=== PATIENT | female | born 1980 | race Caucasian/White ===

== ENCOUNTER 2020-06-11 14:02 | Emergency (ER) | payer BC, SELFPAY ==
[2020-06-11 14:16] VITALS: BP 101/55; PULSE 70; RESP 20; TEMP 37.2; O2SAT 98
--- NOTE | 2020-06-11 14:25 | ED.URI ---
HPI - URI/Sore Throat General Chief Complaint: Upper Respiratory Infection Stated Complaint: cough/sob/wheezing/ellis Time Seen by Provider: 06/11/20 14:25 Source: patient and RN notes reviewed Mode of arrival: ambulatory Limitations: no limitations History of Present Illness MD elicited complaint: cough Related Data Home Medications Medication Instructions Recorded Confirmed No Home Medications 06/11/20 06/11/20 Allergies Allergy/AdvReac Type Severity Reaction Status Date / Time No Known Allergies Allergy Verified 07/21/19 12:38 Review of Systems Review of Systems: Narrative: CONSTITUTIONAL: Denies malaise, chills, sweats, or fever. EYES: Denies visual changes, redness, or discharge. ENT: Reports rhinorrhea, congestion, sinus pain, otalgia and sore throat. CARDIOVASCULAR: Denies chest pain, palpitations, or edema. RESPIRATORY: Reports cough. Denies dyspnea. GASTROINTESTINAL: Denies abdominal pain, nausea, vomiting, diarrhea SKIN: Denies rash or itching. MUSCULOSKELETAL: Denies myalgia. NEUROLOGIC: Denies headache. All systems reviewed & are unremarkable except as noted in HPI and below PMFSH Family History Family History Grandparent Hypertension Family history of elevated blood lipids Cerebrovascular accident Carcinoma of colon Family history of malignant neoplasm of cervix Family history of coronary artery disease Diabetes mellitus Mother Family history of malignant neoplasm of cervix Social History Social History Smoking status: Light tobacco smoker Second hand tobacco smoke exposure: No Smoking end date: 07/26/08 Alcohol intake: current Substance use type: marijuana Gender identity (if verbalized by the patient): Female Comments At time of signature, agree with nursing past medical, surgical, social and family history. There is no relevant family history pertinent to the presenting complaint Exam Narrative: Exam Narrative: GENERAL: Well-appearing, well-nourished, and in no acute distress. HEAD: Normocephalic EYES: PERRLA, conjunctivae clear ENT: Nares clear, turbinates edematous and erythematous, clear discharge. Mucous membranes moist. TM pearly hannah with dull light reflex bilaterally; no tragal tenderness. Oropharynx erythematous without lesions. Tonsils enlarged and without exudate, no drooling, no hoarseness, no trismus, uvula midline. NECK: Supple. No lymphadenopathy CHEST: Clear to auscultation, breath sounds equal. No wheezing, rhonchi, rales, or stridor. No respiratory distress, speaks in full sentences. HEART: Regular rate and rhythm. No murmur heard. SKIN: Warm, dry, no rash. NEURO: Alert and oriented x3. PSYCH: Normal mood and affect Course Course Emergency Course: Patient is aware of diagnosis, understands and agrees to treatment plan. Anticipatory guidance given. Patient agrees to follow-up as directed and is aware of reasons to seek care at the emergency department. Portions of this record may have been created with voice recognition software Vital Signs Vital signs: Vital Signs Temperature 99.0 F 06/11/20 14:16 Pulse Rate 70 06/11/20 14:16 Respiratory Rate 20 06/11/20 14:16 Blood Pressure 101/55 L 06/11/20 14:16 Pulse Oximetry 98 06/11/20 14:16 Temperature 99.0 F 06/11/20 14:16 Pulse Rate 70 06/11/20 14:16 Respiratory Rate 20 06/11/20 14:16 Blood Pressure 101/55 L 06/11/20 14:16 Pulse Oximetry 98 06/11/20 14:16 Reviewed. MDM - URI/Sore Throat MDM Narrative Medical decision making narrative: Differential diagnosis considered: Lindquist virus, strep pharyngitis, allergic rhinitis, upper respiratory tract infection, sinusitis, rhinosinusitis, nasopharyngitis. viral pharyngitis, otitis media, otitis externa, pneumonia, bronchitis, viral cough syndrome, viral syndrome, and influenza. Exam findings show no acute c
== END 2020-06-11 14:43 | disposition home or self-care (01) ==
PROVIDERS: Emergency Provider Nurse Practitioner
DX: Z20.828 Contact with and (suspected) exposure to other viral communicable diseases (principal); R05 Cough; R06.02 Shortness of breath; R51.9 Headache, unspecified; R06.2 Wheezing; R09.89 Other specified symptoms and signs involving the circulatory and respiratory systems; R43.9 Unspecified disturbances of smell and taste
CPT/HCPCS: 99211; G0463

== ENCOUNTER 2020-06-13 06:53 | Outpatient (NON) | payer BC, SELFPAY ==
[2020-06-13 21:01] LABS: SARS-CoV-2 RNA PCR Negative
== END 2020-06-13 06:54 ==
LOC: ANHCOVIDDT 07:11
PROVIDERS: Visit Provider Nurse Practitioner
DX: R68.89 Other general symptoms and signs (principal); Z20.828 Contact with and (suspected) exposure to other viral communicable diseases
CPT/HCPCS: 87635; C9803; U0003

== ENCOUNTER 2022-12-11 14:56 | Outpatient (CLI) | payer OTHER, SELFPAY ==
--- NOTE | ~2022-12-11 | MM_ITS ---
EXAMINATION: MM screening [facility] BI w dane HISTORY: Screening mammogram TECHNIQUE: Craniocaudal and mediolateral oblique 3-D tomosynthesis images were obtained and synthetic 2-D images were generated. CAD analysis was submitted and interpreted. COMPARISON: 08/20/2016, 05/16/2015 BREAST PARENCHYMAL COMPOSITION: The breasts are extremely dense, which lowers the sensitivity of mamm ography. FINDINGS: No suspicious mass, calcification, or architectural distortion are identified in either clement ast to suggest malignancy. There has been no suspicious interval change. IMPRESSION: 1. No mammographic evidence of malignancy. 2. Recommend routine screening mammography in one year. BI-RADS Category 1: Negative Reviewed, dictated and finalized at location A.
== END 2022-12-11 14:57 | disposition home or self-care (01) ==
LOC: ANHIMG 15:05
PROVIDERS: PCP Family Medicine; Visit Provider Registered Nurse
DX: Z12.31 Encounter for screening mammogram for malignant neoplasm of breast (principal)
CPT/HCPCS: 77063; 77067

== ENCOUNTER 2024-09-08 14:08 | Outpatient (CLI) | payer OTHER, SELFPAY ==
--- NOTE | ~2024-09-08 | MM_ITS ---
EXAMINATION: MM screening [facility] BI w dane HISTORY: Screening TECHNIQUE: Craniocaudal and mediolateral oblique 3-D tomosynthesis images were obtained and synthetic 2-D images were generated. CAD analysis was submitted and interpreted. COMPARISON: Comparison to multiple prior studies sequentially, with oldest reviewed study dated 04/26. BREAST PARENCHYMAL COMPOSITION: Dense: The breasts are extremely dense, which lowers the sensitivity of mammography. FINDINGS: There are new masses in the lower outer quadrant of the left breast, anterior third. These are obscured by dense fibroglandular tissue. The right breast is stable without evidence for malignan cy. IMPRESSION: 1. New left breast masses. 2. Additional mammographic views and possible breast ultrasound are recommended. BI-RADS Category 0: Incomplete: Needs additional imaging evaluation. Reviewed, dictated and finalized at location B. [facility] IMPRESSION: 1. New left breast masses. 2. Additional mammographic views and possible breast ultrasound are recommended . BI-RADS Category 0: Incomplete: Needs additional imaging evaluation.
--- OUTSIDE RECORDS SUMMARY | 2024-09-08 14:13 | XMS_ITS | Clinical Summary ---
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 Family History Medical History Relation Name Comments Breast Cancer Maternal Aunt Breast Cancer Paternal Grandmother Relation Name Status Comments Maternal Aunt Alive Paternal Grandmother Social History Tobacco Use Types Packs/Day Years Used Date Smoking Tobacco: Former Cigarettes 0.5 15 0 07/26/2003 - 07/26/2018 Smokeless Tobacco: Never Tobacco Cessation:Ready to Q uit: No Alcohol Use Standard Drinks/Week Comments No 0 (1 standard drink = 0.6 oz pur e alcohol) Comments No Sex and Gender Information Value Date Recorded Sex Assigned at Not on file Legal Sex Female 1:27 PM CDT Gender Identity Not on file Sexual Orientation Not on file Last Filed Vital Signs Vital Sign Reading Time Taken Comments Blood Pressure 102/75 09/23/2018 10:41 AM CUSTOM SEAMSTRESS Pulse 76 09/23/2018 10:41 AM CUSTOM SEAMSTRESS Temperature 36.6 C (97.9 F) 09/23/2018 10:41 AM CUSTOM SEAMSTRESS Respiratory Rate - - Oxygen Saturation 99% 09/23/2018 10:41 AM CUSTOM SEAMSTRESS Inhaled Oxygen Concentration - - Weight 54.6 kg (120 lb 6.4 oz) 09/23/2018 10:41 AM CUSTOM SEAMSTRESS Height 162.6 cm (5' 4 ) 09/23/2018 10:41 AM CUSTOM SEAMSTRESS Body Mass Index 20.67 09/23/2018 10:41 AM CUSTOM SEAMSTRESS Plan of Treatment Health Maintenance Due Date Last Done Comments DTAP/TDAP/TD VACCINES (1 - Tdap) 1998 HEPATITIS B VACCINES (1 of 3 - 19+ 3-dose series) 1998 CERVICAL CANCER SCREENING 2009 BREAST CANCER SCREENING 2019 08/20/19 17, 05/16/2015 INFLUENZA VACCINE (#1) 2024 COLORECTAL SCREENING 2024 Colorectal Cancer Screening 2024 FIT-DNA Q 3 years 2024 FIT/FOBT Q 1 year 2024 Flex Sig/CT Colonography Q 5 years 2024 HPV VACCINES Aged Out No longer eligi ble based on patient's age to complete this topic PNEUMOCOCCAL VACCINE 0-64 YEARS Aged Out No longer eligible b ased on patient's age to complete this topic Procedures Procedure Name Priority Date/Time Associated Diagnosis Comments MAMMO SCREENING UNILATERAL LEFT Routine 08/20/2016 from Last 3 Months or Most Recently Relevant to Health Maintenance Results * MAMMO SCREENING UNILATERAL LEFT (08/20/2016) Anatomical Region Laterality Modality Breast Left Other us Abstract Provider MAMMO ORDERABLES Final Result from Last 3 Months or Most Recently Relevant to Health Maintenance Care Teams Safety Lamp Keeper Relationship Specialty Start Date End Date Dimitri Roth MD [address] [facility] [[email or web address]] [address] [place] [id number] PCP - General Obstetrics and Gynecology 01/06/18
--- OUTSIDE RECORDS SUMMARY | 2024-09-08 14:13 | XMS_ITS | Clinical Summary ---
Author Organization [facility] Address [facility] [place] [address] Care Team Providers Care Cosmetic Manager Name Role Phone Aviva Rivas MD Primary Care Provider [phone] Allergies No known active allergies Medications Calcium Carbonate-Vit D-Min (CALCIUM 1200 OR) Ac tive MAGNESIUM OR Active Multiple Vitamins-Minerals (ZINC OR) Active diazePAM 2 MG tabletIndications:V ertigo Take 1 tablet (2 mg total) by mouth every 6 (six) hours as needed for Anxiety. 60 tablet 2 Active ondansetron (ZOFRAN ODT) 4 MG disintegrating tablet Take 1 tablet (4 mg total) by mouth every 8 (eight) hours as needed for Nausea. 15 tablet 2 Active Resolved Problems Problem Noted Date Diagnosed Date Resolved Date Closed avulsion fracture of navicular bone of right foot, initial encounter 10/10/2021 10/10/2021 Social History Tobacco Use Types Packs/Day Years Used Date Smoking Tobacco: Never Smokeless Tobacco: Never Tobacco Cessation:Counseling Given: No Alcohol Use Standard Drinks/Week Comments Never 0 (1 standard drink = 0.6 oz pur e alcohol) PHQ-2 Answer Date Recorded PHQ-2 Score - If the patient scores above 3, please move on to questions 3-9 0 10/10/2021 Comments No Sex and Gender Information Value Date Recorded Sex Assigned at Not on file Legal Sex Female 6:44 PM CDT Gender Identity Not on file Sexual Orientation Not on file Last Filed Vital Signs Vital Sign Reading Time Taken Comments Blood Pressure 108/65 10/26/2021 10:20 AM CDT Pulse 72 10/26/2021 10:20 AM CDT Temperature 36.7 C (98.1 F) 10/26/2021 10:20 AM CDT Respiratory Rate 16 10/26/2021 10:20 AM CDT Oxygen Saturation 100% 10/26/2021 10:20 AM CDT Inhaled Oxygen Concentration - - Weight 65.1 kg (143 lb 8.3 oz) 10/26/2021 10:20 AM CDT Height 162.6 cm (5' 4 ) 10/26/2021 10:20 AM CDT Body Mass Index 24.64 10/26/2021 10:20 AM CDT Plan of Treatment Health Maintenance Due Date Last Done Comments Cervical Cancer Screening Pa p Smear (Age 30 to 64) Every 3 Years 1979 Colorectal Cancer Screening Colonoscopy (10 Years) 1979 Annual Physical 1982 Hepatitis C 1997 DTaP, Tdap and Td Vaccines ( 1 - Tdap) 1998 Hepatitis B Vaccines (1 of 3 - 19+ 3-dose series) 1998 Cervical Cancer Screening Pa p with HPV Testing (Age 30 to 64) Every 5 Years 2009 Cervical Cancer Screening with HPV 2009 Mammogram Screening 2019 COVID-19 Vaccine (2023-2 5 season) 2024 Influenza Adult (#1) 2024 HPV Vaccines Aged Out No longer eligi ble based on patient's age to complete this topic Meningococcal B Vaccine Aged Out No l onger eligible based on patient's age to complete this topic Meningococcal Vaccine Aged Out No chana tarun eligible based on patient's age to complete this topic Pneumococcal Vaccine: Pediat rics (0 to 5 Years) and At-Risk Patients (6 to 64 Years) Aged Out No longer eligible b ased on patient's age to complete this topic RSV Immunizations Under 20 Months Aged Out No longer eligible based on patient's age to complete this topic Care Teams Cosmetic Manager Relationship Specialty Start Date End Date Aviva Rivas MD [address] [place] [address] PCP - General FAMILY PRACTICE 10/13/21
== END 2024-09-08 14:09 | disposition home or self-care (01) ==
LOC: ANHIMG 14:10
PROVIDERS: Visit Provider Obstetrics & Gynecology
DX: Z12.31 Encounter for screening mammogram for malignant neoplasm of breast (principal); N63.20 Unspecified lump in the left breast, unspecified quadrant
CPT/HCPCS: 77063; 77067

== ENCOUNTER 2024-10-10 13:26 | Outpatient (CLI) | payer OTHER, SELFPAY ==
--- NOTE | ~2024-10-10 | MMUS_ITS ---
EXAMINATION: MM diagnostic landon LT w dane, US breast LT complete HISTORY: Follow-up left breast mass TECHNIQUE: Additional 3-D tomosynthesis images of the left breast were performed and synthetic 2-D im ages were generated. CAD analysis was submitted and interpreted. High resolution complete left breast ultrasound was performed. COMPARISON: Comparison to multiple prior studies sequentially, with oldest reviewed study dated 04/26. BREAST PARENCHYMAL COMPOSITION: Dense: The breasts are extremely dense, which lowers the sensitivity of mammography. FINDINGS: MAMMOGRAPHIC FINDINGS: There is a circumscribed radiolucent mass in the lower outer quadrant of the left breast anteriorly o bscured by fibroglandular tissue. There are no suspicious calcifications or architectural distortion. ULTRASOUND: Complete US of all 4 quadrants of the left breast/s and retroareolar region was reviewed. At 12:00 ne ar the nipple there is a 1.2 cm cyst. At 3:00 1 cm from the nipple there is a partially septated 11 m m cyst. At 8:00, 1 cm from the nipple there is a 7 mm cyst. No suspicious masses to suggest malignanc y. The mass at 3:00 likely corresponds to the mammographic finding. IMPRESSION: 1. No evidence for malignancy in the left breast. Benign findings. 2. Routine yearly screening mammogram and regular clinical breast examination are recommended. BI-RADS Category 2: Benign finding(s). Reviewed, dictated and finalized at location B. IMPRESSION: 1. No evidence for malignancy in the left breast. Benign findings. 2. Routine yearly screening mammogram and regular clinical breast examination a re recommended. BI-RADS Category 2: Benign finding(s).
--- OUTSIDE RECORDS SUMMARY | 2024-10-10 15:02 | XMS_ITS | Clinical Summary ---
Author Organization [facility] Address [address] [place] [address] [place] [address] Care Team Providers Care Crystalizer Name Role Phone Dimitri Roth MD Primary Care Provider [phone] Allergies No known active allergies Medications No [...] Comments Blood Pressure 102/75 09/23/2018 10:41 AM RAPID EXTRACTOR OPERATOR Pulse 76 09/23/2018 10:41 AM RAPID EXTRACTOR OPERATOR Temperature 36.6 C (97.9 F) 09/23/2018 10:41 AM RAPID EXTRACTOR OPERATOR Respiratory Rate - - Oxygen Saturation 99% 09/23/2018 10:41 AM RAPID EXTRACTOR OPERATOR Inhaled Oxygen Concentration - - Weight 54.6 kg (120 lb 6.4 oz) 09/23/2018 10:41 AM RAPID EXTRACTOR OPERATOR Height 162.6 cm (5' 4 ) 09/23/2018 10:41 AM RAPID EXTRACTOR OPERATOR Body Mass Index 20.67 09/23/2018 10:41 AM RAPID EXTRACTOR OPERATOR Plan of Treatment Health Maintenance Due Date [...] age to complete this topic PNEUMOCOCCAL VACCINE 0-49 YEARS Aged Out No longer eligible b [...] Recently Relevant to Health Maintenance Care Teams Crystalizer Relationship Specialty Start Date End Date Dimitri Roth MD [address] [facility] [address] [place] [id number] PCP - General Obstetrics and Gynecology 01/06/18
--- OUTSIDE RECORDS SUMMARY | 2024-10-10 15:02 | XMS_ITS | Clinical Summary ---
Author Organization [facility] Address [facility] [place] [address] Care Team Providers Care Display Specialist Name Role Phone Aviva Rivas MD Primary Care Provider [phone] Allergies No known active allergies Medications Calcium [...] age to complete this topic Care Teams Display Specialist Relationship Specialty Start Date End Date Aviva Rivas MD [address] [place] [address] PCP - General FAMILY PRACTICE 10/13/21
--- OUTSIDE RECORDS SUMMARY | 2024-10-10 15:02 | XMS_ITS | Data Portability ---
Author Organization [place] - [facility] [email or web address], Main Office Address [address] [place] [address] Assessment No assessment recorded. Plan of Treatment Reminders Order Date Submit Date Provider Last Modified By Organization Details Last Modified Time Details Appointments None recorded . Lab lipid panel, serum 023 11/04/19 [facility], [address] [place] [address], [address], [place], [address], 3 03:07:53 CMP, serum or plasma 11/04/19 [facility], [address] [place] [address], [address], [place], [address], 3 03:07:51 TSH, ultra-se nsitive, serum 11/04/19 [facility], [address] [place] [address], [address], [place], [address], 3 03:07:54 Referral None recorded . Procedures None recorded . Surgeries None recorded . Imaging None recorded . Medication Orders None recorded . Patient TargetsNo targets recorded. Patient InstructionsNo instructions recorded. Reason for Referral None Reported. Results Created Date Observation Date Name Description Value Unit Range Abnormal Flag Note LastModifiedBy Organization Detail LastModifiedTime 11/07/1911/07/2022 COMP. METAB OLIC PANEL (14) glucose 97 mg/dL 70-99 Not Available [facility] ([facility]) [address] [facility], [place], [address], 11/07/2022 03:07:51 11/07/19 23 11/07/2022 COMP. METAB OLIC PANEL (14) BUN 13 mg/dL 6-24 Not Available [facility] ([facility]) [address] [facility] [place], [address], 11/07/2022 03:07:51 11/07/19 23 11/07/2022 COMP. METAB OLIC PANEL (14) creatinine 0.92 mg/dL 0.57-1 .00 Not Available [facility] ([facility]) [address] [facility] [place], [address], 11/07/2022 03:07:51 11/07/19 23 11/07/2022 COMP. METAB OLIC PANEL (14) eGFR 79 mL/mi n/1.7 3 >59 Not Available [facility] ([facility]) [address] [facility], [place], [address], 11/07/2022 03:07:51 11/07/19 23 11/07/2022 COMP. METAB OLIC PANEL (14) BUN/creatini ne ratio 14 9-23 Not Available [facility] ([facility]) [address] [facility], [place], [address], 11/07/2022 03:07:51 11/07/19 23 11/07/2022 COMP. METAB OLIC PANEL (14) sodium 141 mmol/ L 134-14 4 Not Available [facility] ([facility]) [address] [facility], [place], [address], 11/07/2022 03:07:51 11/07/19 23 11/07/2022 COMP. METAB OLIC PANEL (14) potassium 4.2 mmol/ L 3.5-5. 2 Not Available [facility] ([facility]) [address] [facility] [place], [address], 11/07/2022 03:07:51 11/07/19 23 11/07/2022 COMP. METAB OLIC PANEL (14) chloride 108 mmol/ L 96-106 above high normal Not Available [facility] ([facility]) [address] [facility], [place], [address], 11/07/2022 03:07:51 11/07/19 23 11/07/2022 COMP. METAB OLIC PANEL (14) carbon dioxide, total 21 mmol/ L Not Available [facility] ([facility]) [address], [place], [address], 11/07/2022 03:07:51 11/07/19 23 11/07/2022 COMP. METAB OLIC PANEL (14) calcium 9.1 mg/dL 8.7-10 .2 Not Available [facility] ([facility]) [address] [facility], [place], [address], 11/07/2022 03:07:51 11/07/19 23 11/07/2022 COMP. METAB OLIC PANEL (14) protein, total 6.4 g/dL 6.0-8. 5 Not Available [facility] ([facility]) [address] [facility], [place], [address], 11/07/2022 03:07:51 11/07/19 23 11/07/2022 COMP. METAB OLIC PANEL (14) albumin 4.3 g/dL 3.8-4. 8 Not Available [facility] ([facility]) [address] [facility], [place], [address], 11/07/2022 03:07:51 11/07/19 23 11/07/2022 COMP. METAB OLIC PANEL (14) globulin, total 2.1 g/dL 1.5-4. 5 Not Available [facility] ([facility]) [address] [facility] [place], [address], 11/07/2022 03:07:51 11/07/19 23 11/07/2022 COMP. METAB OLIC PANEL (14) A/G ratio 2.0 1.2-2. 2 Not Available [facility] ([facility]) [address] [facility] [place], [address], 11/07/2022 03:07:51 11/07/19 23 11/07/2022 COMP. METAB OLIC PANEL (14) bilirubin, total 0.6 mg/dL 0.0-1. 2 Not Available [facility] ([facility]) [address] [facility], [place], [address], 11/07/2022 03:07:51 11/07/19 23 11/07/2022 COMP. METAB OLIC PANEL (14) alkaline phosphatase 61 IU/L 44-121 Not Available [facility]) [address] [facility], [place], [address], 11/07/2022 03:07:51 11/07/19 23 11/07/2022 COMP. METAB OLIC PANEL (14) AST (SGOT) 14 IU/L 0-40 Not Available [facility] ([facility]) [address] [place], [address], 11/07/2022 03:07:51 11/07/19 23 11/07/2022 COMP. METAB OLIC PANEL (14) ALT (SGPT) 8 IU/L 0-32 Not Available [facility] ([facility]) [address] [facility], [place], [address], 11/07/2022 03:07:51 11/07/19 23 11/07/2022 LIPID PANEL cholesterol, total 138 mg/dL 100-19 9 Not Available [facility] ([facility]) [address] [facility], [place], [address], 11/07/2022 03:07:53 11/07/19 23 11/07/2022 LIPID PANEL triglyceride s 37 mg/dL 0-149 Not Available [facility]) [address] [place], [address], 11/07/2022 03:07:53 11/07/19 23 11/07/2022 LIPID PANEL HDL cholesterol 56 mg/dL >39 Not Available [facility]) [address] [facility], [place], [address], 11/07/2022 03:07:53 11/07/19 23 11/07/2022 LIPID PANEL VLDL cholesterol mishel 9 mg/dL 5-40 Not Available [facility] [address] [place], [address], 11/07/2022 03:07:53 11/07/19 23 11/07/2022 LIPID PANEL LDL chol calc ([facility]) 73 mg/dL 0-99 Not Available [facility]) [address] [facility], [place], [address], 11/07/2022 03:07:53 11/07/1911/07/2022 LIPID PANEL comment: CLAIM PROCESSING SPECIALIST Not Available [facility] ([facility]) [address] [facility], [place], [address], 11/07/2022 03:07:53 11/07/1911/07/2022 TSH RFX ON ABNOR MAL TO FREE T4 TSH 1.340 uIU/m L 0.450- 4.500 Not Available [facility] ([facility]) [address] [facility], [place], [address], 11/07/2022 03:07:54 12/12/1912/11/2022 MAMMO , scree zackery, bilat eral No observ ation record ed. [email or web address] [facility] [address], [place], [address], 12/14/2022 09:46:07 Result Notes None recorded. Problems Name Problem SNOMED Code Status Onset Date Resolution Date Notes Provider Name and Address Organization Details Recorded Time Sclerosing adenosis of right breast 3575050986832 9102 Active 2019 Not Available [facility] 3 22:23:35 Borderline personalit y disorder 95576646 Active 2019 Not Available [facility] 3 22:23:35 Depressive disorder 15742127 Active 2019 Not Available [facility] 3 22:23:35 Problem Notes None recorded. Procedures Surgical History None recorded. Imaging Results Imaging Date Name Status LastModified by Organiz ation Details LastModified Time 12/11/2022 MAMMO, screening, bilateral completed [address], [place], [address], 12/14/2022 09:46:07 Procedure Notes None recorded. Medical Equipment None Reported. Medications Name Sig Start Date Stop Date Status Note LastModified by Organization Details LastModified Time amoxicillin 500 mg capsule active Not Available Not Available Not Available ibuprofen 800 mg tablet active Not Available Not Available Not Available oxycodone-ac etaminophen 5 mg-325 mg tablet TAKE 1 TABLET BY MOUTH EVERY 4 TO 6 HOURS NEEDED FOR PAIN active Not Available Not Available No t Available clonazepam 2 mg tablet TAKE ONE TABLET THE NIGHT BEFORE DENTAL APPOINTMENT AND ONE TABLET 1 HOUR PRIOR TO DENTAL APPOINTMENT active Not Available Not Available Not Available ergocalcifer ol (vitamin D2) 1,250 mcg (50,000 unit) capsule TAKE 1 CAPSULE BY MOUTH EVERY WEEK active Not Available Not Available No t Available Vitals Date Recorded Body height Body mass index (BMI) Body weight Body temperature Heart rate Oxygen saturation Oxygen saturation in Arterial blood by Pulse oximetry Systolic blood pressure Diastolic blood pressure Provider Name and Address Organization Details Last Updated DateTime 3 162.56 cm 23.2 kg/m2 73300.9 7 g 99 [degF] 98 /min 98 % 98 % 130 mm[Hg] 80 mm[Hg] NAKIA Scott [facility] [employer] [facility] 3 15:34:14 Social History None recorded. Functional Status None recorded. Mental Status None recorded. Family History Nothing Reported. Medical History No medical history recorded. Gynecological HistoryNo gynecological history recorded. Obstetrics History GPAL:G 0 P 0 0 0 0 Past Encounters Encounter ID Performer Location Encounter Start Date Encounter Closed Date Diagnosis/Indication Diagnosis SNOMED-CT Code Diagnosis ICD10 Code Diagnosis Note [id number] Aviva Hook MD [facility] Barbi miller [address] [facility] [address] , [place] [address] 11/03/2022 15:20:29 11/03/2022 16:09:00 Adult health examination 991021805 Z00.00 Hyperlipid emia screening 147012364 Z13.220 Thyroid di sorder screening 689265131 Z13.29 Health Concerns Section Related Observation LastModified by Organization Detai ls LastModified Time None Recorded Concern Status LastModified by Organization Details LastModified Time None Recorded Advance Directives Directive None Recorded Payers Encounter Date Sequence Insurance Name Policy Number Policy Gibson Covered Member ID Gibson Member ID Guarantor Name 11/03/2022 1 [facility] [id number] Bettie Maximilian [id number] Bettie Yao Notes Date Note Type Note Provider Name and Address Organization Details Recorded Time 11/03/2022 text/html Here today for annual wellness. Is losing insurance so wants to do a wellness visit. Is due for BW. Has wwe scheduled for 11/27/22Her mom is sick. 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 Aviva Hook MD [address] [place] [address], [facility] [address], [place], [address], [place] [facility] [employer] 11/04/2022 06:29:56 OBGyn Episode No OBEpisode recorded.
== END 2024-10-10 13:27 | disposition home or self-care (01) ==
LOC: ANHIMG 13:28
PROVIDERS: Visit Provider Nurse Practitioner Obstetrics & Gynecology
DX: R92.8 Other abnormal and inconclusive findings on diagnostic imaging of breast (principal)
CPT/HCPCS: 76641; 77061; 77065; G0279